=== PATIENT | female | born 1955 | race Caucasian/White ===

== ENCOUNTER → 2019-01-08 | Outpatient (CLI) | payer OTHER ==
[~2019-01-08] VITALS: Ht 167.6 cm; Wt 68.0 kg
[~2019-01-08] MED LIST: ALPRAZOLAM 0.0.25 M1 PO; AVAPRO 150 MG150 M1 PO; BONIVA150 MG PO; CHLORTHALIDONE25 MG PO; FISH OIL 1,001000 M2 PO; SYNTHROID112 MC1 PO; TOPROL XL25 MG PO
[2019-01-08 12:16] VITALS: BP 136/67
== END | disposition home or self-care (01) ==
LOC: SPEC 11:45
DX: I70.1 Atherosclerosis of renal artery (principal); I15.0 Renovascular hypertension; I77.3 Arterial fibromuscular dysplasia; I10 Essential (primary) hypertension; E78.00 Pure hypercholesterolemia, unspecified; E03.9 Hypothyroidism, unspecified; M85.80 Other specified disorders of bone density and structure, unspecified site; Z79.899 Other long term (current) drug therapy